=== PATIENT | female | born 1955 | race Caucasian/White ===

== ENCOUNTER 2018-04-17 08:13 | Day surgery (SDC) | payer MEDICARE, OTHER ==
--- NOTE | 2018-04-14 14:16 | Pre-Procedure Note/Attestation ---
Pre-Procedure Note/Attestation Complete Prior to Procedure Planned Procedure: left Procedure Narrative: Cataract extraction With Intraocular Lens Implant Left Eye Indications for Procedure Pre-Operative Diagnosis: Cataract Left Eye Attestation I attest that I discussed the nature of the procedure; its benefits; risks and complications; and alternatives (and the risks and benefits of such alternatives ), prior to the procedure, with the patient (or the patient's legal leasing representative). I attest that, if there was a reasonable possibility of needing a blood transfusion, the patient (or the patient's legal leasing representative) was given the [facility] standardized written summary, pursuant to the Evan Jordan Blood Safety Act ([place] Health and Safety Code # 1645, as amended). I attest that I re-evaluated the patient just prior to the surgery and that there has been no change in the patient's H&P, except as documented below: Chinedu Ibarra MD Apr 14, 2018 14:16
--- NOTE | 2018-04-14 14:21 | Opthalmology H&P ---
Ophthalmology H&P H&P Chief Complaint: decreased vision in left eye HPI Vision Affects Ability to: read, focus/use eyes together HPI Narrative Blurry Vision Exam Visual Acuity: OD 20/60 OS 20/60 Tension: OD 19 OS 18 Eye Exam: normal OU: external exam, palpebral fissure-width, marginal reflex distance, levator function, corneas, anterior chambers, fundus exam; findings: lens - Cortical Cataract OS Assessment/Plan Treatment Plan: cataract extraction w/ lens implant Goals of Treatment: improvement of vision, enhance quality of life Attestation Attestation The risks and benefits of the surgery as well as alternative procedures were explained to the patient in detail. Chinedu Ibarra MD Apr 14, 2018 14:21
[2018-04-17] VITALS (11 sets, daily range): BP systolic 81–137; BP diastolic 46–85
[~2018-04-17] VITALS: Ht 167.6 cm; Wt 117.9 kg
[~2018-04-17 08:13] MED LIST: Akten 3.5% 1ml Btl LEFT EYE ONE; Dexamethasone 4mg/ml vial ONE; Maxitrol Opth Oint 3.5gm ONE; Pilocarpine 1% Opth 15ml Soln ONE; Pred Forte 1% Opth Susp 1ml ONE; Proparacaine 0.5% Opth Soln 15ml LEFT EYE ONE; Tetracaine 0.5% Opth 4ml Soln LEFT EYE ONE
[2018-04-17] MEDS: Diclofenac Sod 0.1% Op Soln LEFT EYE SCH ×3 (12:25→12:42)
[2018-04-17] MEDS: Tropicamide 1% Opth 15ml Soln LEFT EYE SCH ×3 (12:25→12:42)
[2018-04-17] MEDS: Phenylephrine 10% Opth Soln 5ml LEFT EYE SCH ×3 (12:26→12:42)
[2018-04-17] MEDS: Tobramycin Op Soln 0.3% 5ml LEFT EYE SCH ×3 (12:26→12:42)
[2018-04-17] MEDS: Cyclopentolate 1% Opth Sol 2ml LEFT EYE SCH ×3 (12:26→12:42)
[2018-04-17] MEDS ORDERED: EPINEPHrine 1mg/1ml Amp ONE (12:53)
[2018-04-17] MEDS ORDERED: BSS 15ml BTL ONE (12:54)
[2018-04-17] MEDS ORDERED: Povidone-Iodine 5% opth solution ONE (12:54)
[2018-04-17] MEDS ORDERED: Sodium Hyaluronate 14 mg/ml 0.85ml ONE (12:54)
[2018-04-17] MEDS ORDERED: BSS 500ml btl ONE (12:54)
[2018-04-17] MEDS ORDERED: Sterile Water Irrig 1000ml IRRIG ONE (13:00)
[2018-04-17] MEDS ORDERED: NS Irrig 1000ml ONE (13:00)
[2018-04-17] MEDS ORDERED: LR 1000ml ONE (13:00)
[2018-04-17] MEDS ORDERED: fentaNYL 100 mcg/2 mL IV ONE (13:08)
[2018-04-17] MEDS ORDERED: Midazolam 2mg/2ml Inj ONE ×2 (13:08→13:22)
[2018-04-17] MEDS ORDERED: CYMBALTA60 MG ORAL (13:11)
[2018-04-17] MEDS ORDERED: HYDROXYZINE HCL50 M1 PO (13:11)
[2018-04-17] MEDS ORDERED: GLIPIZIDE10 MG PO (13:11)
[2018-04-17] MEDS ORDERED: PRAZOSIN HCL2 MG PO (13:11)
[2018-04-17] MEDS ORDERED: ATORVASTATIN CA40 MG ORAL (13:11)
[2018-04-17] MEDS ORDERED: JANUVIA25 MG ORAL (13:11)
[2018-04-17] MEDS ORDERED: IBUPROFEN600 MG ORAL (13:11)
[2018-04-17] MEDS ORDERED: TRAZODONE HCL50 MG ORAL (13:11)
--- NOTE | 2018-04-17 13:55 | Anethesia Preoperative Eval ---
Anesthesia Pre-op PMH/ROS General Date of Evaluation: Apr 17, 2018 Time of Evaluation: 13:00 Anesthesiologist: velia ASA Score: ASA 3 Mallampati Score Class I : Soft palate, uvula, fauces, pillars visible Class II: Soft palate, uvula, fauces visible Class III: Soft palate, base of uvula visible Class IV: Only hard plate visible Mallampati Classification: Class III Surgeon: radha Diagnosis: cataract Anesthesia History: none Family History: no anesthesia problems Allergies: Coded Allergies: PENICILLINS (Verified Allergy, Severe, 04/17/18) TROUBLE BREATHING, THROAT CLOSES WATERMELON (Verified Allergy, Severe, 04/17/18) THROAT CLOSES Medications: see eMAR Patient NPO?: Yes NPO Date: Apr 17, 2018 NPO Time: 00:01 Past Medical History Cardiovascular: Reports: HTN, CAD Pulmonary: Denies: asthma, COPD, BRETT, other Gastrointestinal/Genitourinary: Reports: GERD; Denies: CRI, ESRD, other Neurologic/Psychiatric: Reports: depression/anxiety; Denies: dementia, CVA, TIA, other Endocrine: Reports: DM; Denies: hypothyroidism, steroids, other HEENT: Reports: cataract (L) Hematology/Immune: Denies: anemia, DVT, bleeding disorder, other Musculoskeletal/Integumentary: Denies: OA, RA, DJD, DDD, edema, other Other: obesity Anesthesia Pre-op Phys. Exam Physician Exam Last Vital Signs Date Time Temp Pulse Resp B/P (MAP) Pulse Ox O2 Delivery O2 Flow Rate FiO2 04/17/18 12:45 Room Air 04/17/18 12:30 98.4 77 18 113/69 98 Constitutional: NAD Neurologic: CN 2-12 intact Cardiovascular: RRR Respiratory: CTA Gastrointestinal: S/NT/ND Airway Exam Mallampati Classification 3 Mallampati Score: Class III MO: limited Neck: thick TMD: 1fb ROM: limited Dentures: no upper, no lower Anesthesia Pre-op A/P Studies Pre-op Studies: EKG - sr Risk Assessment & Plan Plan: mac Pre-Antibiotics Drug: none Geri Ayala CRNA Apr 17, 2018 13:55
--- NOTE | 2018-04-17 13:56 | Immediate Post-Op Evaluation ---
Immediate Post-Op Evalulation Immediate Post-Op Evalulation Procedure: left eye cataract extraction IOL Date of Evaluation: Apr 17, 2018 Time of Evaluation: 13:55 IV Fluids: 600 Blood Pressure Systolic: 134 Blood Pressure Diastolic: 81 Pulse Rate: 77 Respiratory Rate: 14 O2 Sat by Pulse Oximetry: 95 Temperature (Fahrenheit): 97.5 Pain Score (1-10): 0 Nausea: No Vomiting: No Complications none Patient Status: awake, reacts, patent Hydration Status: adequate Drug: none Geri Ayala CRNA Apr 17, 2018 13:56
--- NOTE | 2018-04-17 14:23 | 48 Hour Post Anesthesia Eval ---
Post Anesthesia Evaluation Procedure: left eye cataract extraction IOL Date of Evaluation: Apr 17, 2018 Time of Evaluation: 14:23 Blood Pressure Systolic: 133 0: 79 Pulse Rate: 71 Respiratory Rate: 14 O2 Sat by Pulse Oximetry: 98 Airway: patent Nausea: No Vomiting: No Hydration Status: adequate Cardiopulmonary Status: stable Mental Status/LOC: patient returned to baseline Post-Anesthesia Complications: none Follow-up care needed: N/A eGri Ayala CRNA Apr 17, 2018 14:23
--- NOTE | 2018-04-19 10:45 | Brief Operative Note ---
Immediate Post Operative Note Operative Note Chief Complaint: blurry vision Pre-op Diagnosis: Cortical Cataract Left Eye Procedure: phaco with IOL Post-op Diagnosis: Pseudophakia Post-op Diagnosis: same as pre-op Findings: consistent w/pre-op dx studies Surgeon: Stacey Anesthesiologist: Lucy Anesthesia: MAC Specimen: none Complications: none Condition: stable Fluids: LR Estimated Blood Loss: none Drains: none Implant(s) used?: Yes Chinedu Ibarra MD Apr 19, 2018 10:45
--- NOTE | 2018-04-19 10:46 | Operative Note - PDOC ---
Operative Note Operative Note Date of Operation/Procedure: Apr 17, 2018 Chief Complaint: blurry vision Pre-op Diagnosis: Cortical Cataract Left Eye Procedure: phaco with IOL Post-op Diagnosis: Pseudophakia Post-op Diagnosis: same as pre-op Operative Findings: consistent w/pre-op dx studies Surgeon: Stacey Anesthesiologist: Lucy Anesthesia: MAC Specimen: none Complications: none Condition: stable Fluids: LR Estimated Blood Loss: none Drains: none Implant(s) used?: Yes Indications for Procedure cataract Description of Procedure This patient has been complaining visually significant cataract in the affected eye with the best corrected visual acuity under moderate glare conditions worse. The patient complains of difficulties with glare in performing activities of daily living and wants to manage personal affairs with comfort and accuracy and see well enough to move with safety at home and outdoors. The risks, benefits and alternatives of the procedure were discussed with the patient in the office prior to scheduling surgery. All questions from the patient were answered after the surgical procedure was explained in detail. The risks of the procedure as explained to the patient include, but are not limited to, pain, infection, bleeding, loss of vision, retinal detachment, need for further surgery, loss of lens nucleus, double vision, etc. Alternative procedures were discussed which include, to do nothing or seek a second opinion. Informed consent for this procedure was obtained from the patient. The patient was referred to a primary care physician for a cardiopulmonary clearance prior to surgery, after proper evaluation was done patient was properly scheduled for outpatient surgery. The patient was brought to the operating room where the anesthesiologist established I.V. lines and cardiac monitoring leads. Mild intravenous sedation was administered. The patient was then prepared with a 5% solution of povidone -iodine to the conjunctival fornix and lashes, and a 5% solution of povidone- iodine to the lids and periorbital skin. The patient was then draped in the usual sterile fashion. A lid speculum was then placed in the operative eye. A keratome blade was then used to create a biplanar incision into the anterior chamber. Viscoelastics was then instilled into the anterior chamber. A capsulorrhexis was then fashioned with an utrata forceps. The lens nucleus was hydrodissected and hydrodelineated with a G 27 Cannula. Paracentesis incision was made at 3 o'clock with sharp blade. The phacoemulsification unit, after being properly adjusted and tested, was then used to emulsify the nucleus followed by aspiration and irrigation of residual cortical material. Healon was then instilled into the anterior chamber. The corneal wound was then enlarged to the size of the optic with the ernie keratome blade. The intraocular lens was then inspected for right power and size and thought to be satisfactory. Then the lens was gently placed in the capsular bag. Positioning within the capsular bag was confirmed by direct visualization. Optic centration was accomplished with a Sinskey hook. Viscoelastics was removed from the anterior chamber using the irrigation and aspiration unit. The corneal wound was then tested for leaks and none were found. The lid speculum were then removed. Sponge and needle counts were correct. An eye patch and shield were placed over the operative eye. The patient was taken to the recovery room in stable condition. There were no complications. The patient tolerated the procedure well. The patient was then transferred to the ambulatory surgery unit in stable and satisfactory condition , was given detailed written instructions and asked to follow up in the office the next day. Chinedu Ibarra MD Apr 19, 2018 10:46
== END 2018-04-17 15:00 | disposition home or self-care (01) ==
LOC: SUR 08:13
DX: H25.012 Cortical age-related cataract, left eye (principal); I10 Essential (primary) hypertension; E11.9 Type 2 diabetes mellitus without complications; I48.0 Paroxysmal atrial fibrillation; I25.10 Atherosclerotic heart disease of native coronary artery without angina pectoris; F32.9 Major depressive disorder, single episode, unspecified; R91.1 Solitary pulmonary nodule; K21.9 Gastro-esophageal reflux disease without esophagitis; G47.33 Obstructive sleep apnea (adult) (pediatric); Z72.0 Tobacco use; F41.9 Anxiety disorder, unspecified; J44.9 Chronic obstructive pulmonary disease, unspecified; E66.9 Obesity, unspecified; Z88.0 Allergy status to penicillin; Z91.018 Allergy to other foods; Z90.710 Acquired absence of both cervix and uterus; Z90.722 Acquired absence of ovaries, bilateral; Z90.79 Acquired absence of other genital organ(s)
CPT/HCPCS: 66984; 82962; J0171; J1100; J2250; J3010; J3370; V2632; 94003; 94150

== ENCOUNTER 2018-05-15 05:43 | Day surgery (SDC) | payer MEDICARE, OTHER ==
--- NOTE | 2018-05-11 16:28 | Opthalmology H&P ---
Ophthalmology H&P H&P Chief Complaint: decreased vision in right eye HPI Vision Affects Ability to: read, manage personal affairs HPI Narrative Blurry Vision Exam Visual Acuity: OD 20/50 OS 20/40 Tension: OD 12 OS 12 Eye Exam: normal OU: external exam, palpebral fissure-width, marginal reflex distance, levator function, corneas, anterior chambers, lens - Nuclear Sclerotic Cataract Right Eye, fundus exam; findings: lens - Nuclear Sclerotic Cataract Right Eye Assessment/Plan Treatment Plan: cataract extraction w/ lens implant Goals of Treatment: improvement of vision, enhance quality of life Attestation Attestation The risks and benefits of the surgery as well as alternative procedures were explained to the patient in detail. Chinedu Ibarra MD May 11, 2018 16:28
--- NOTE | 2018-05-11 16:34 | Pre-Procedure Note/Attestation ---
Pre-Procedure Note/Attestation Complete Prior to Procedure Planned Procedure: right Procedure Narrative: Cataract Extraction With Intraocular Lens Implant Indications for Procedure Pre-Operative Diagnosis: Cataract Right Eye Attestation I attest that I discussed the nature of the procedure; its benefits; risks and complications; and alternatives (and the risks and benefits of such alternatives ), prior to the procedure, with the patient (or the patient's legal service center representative). I attest that, if there was a reasonable possibility of needing a blood transfusion, the patient (or the patient's legal service center representative) was given the [facility] standardized written summary, pursuant to the Evan Jordan Blood Safety Act ([place] Health and Safety Code # 1645, as amended). I attest that I re-evaluated the patient just prior to the surgery and that there has been no change in the patient's H&P, except as documented below: Chinedu Ibarra MD May 11, 2018 16:34
[2018-05-12 08:33] LABS: BASOPHILS % (AUTO) 0.9 % (0.0-2.0); EOSINOPHILS % (AUTO) 1.2 % (0.0-3.0); HEMATOCRIT 36.6 % (37.0-47.0); HEMOGLOBIN 11.4 G/DL (12.0-16.0); LYMPHOCYTES % (AUTO) 27.1 % (20.0-45.0); MEAN CORPUSCULAR VOLUME 86 FL (80-99); MONOCYTES % (AUTO) 5.8 % (1.0-10.0); PLATELET COUNT 258 K/UL (150-450); RED BLOOD COUNT 4.23 M/UL (4.20-5.40); RED CELL DISTRIBUTION WIDTH 16.3 % (11.6-14.8); WHITE BLOOD COUNT 8.6 K/UL (4.8-10.8)
[2018-05-12 08:43] LABS: ALANINE AMINOTRANSFERASE 23 U/L (12-78); ALBUMIN 3.3 G/DL (3.4-5.0); ALBUMIN/GLOBULIN RATIO 0.8 (1.0-2.7); ALKALINE PHOSPHATASE 99 U/L (46-116); ANION GAP 6 mmol/L (5-15); ASPARTATE AMINO TRANSFERASE 19 U/L (15-37); BILIRUBIN,TOTAL 0.3 MG/DL (0.2-1.0); BLOOD UREA NITROGEN 11 mg/dL (7-18); CALCIUM 8.8 MG/DL (8.5-10.1); CARBON DIOXIDE 32 MMOL/L (21-32); CHLORIDE 104 MMOL/L (98-107); POTASSIUM 4.1 MMOL/L (3.5-5.1); SODIUM 142 MMOL/L (136-145)
[2018-05-12 08:45] LABS: INR 0.9 (0.9-1.1)
[2018-05-15] VITALS (7 sets, daily range): BP systolic 121–164; BP diastolic 71–88
[~2018-05-15] VITALS: Ht 167.6 cm; Wt 121.6 kg
[~2018-05-15 05:43] MED LIST changes: +ATORVASTATIN CA40 MG ORAL; -Akten 3.5% 1ml Btl LEFT EYE ONE; +CYMBALTA60 MG ORAL; -Dexamethasone 4mg/ml vial ONE; +GLIPIZIDE10 MG PO; +HYDROXYZINE HCL50 M1 PO; +IBUPROFEN600 MG ORAL; +JANUVIA25 MG ORAL; -Maxitrol Opth Oint 3.5gm ONE; +PRAZOSIN HCL2 MG PO; -Pilocarpine 1% Opth 15ml Soln ONE; -Pred Forte 1% Opth Susp 1ml ONE; -Proparacaine 0.5% Opth Soln 15ml LEFT EYE ONE; +TRAZODONE HCL50 MG ORAL; -Tetracaine 0.5% Opth 4ml Soln LEFT EYE ONE
[2018-05-15] MEDS: Cyclopentolate 1% Opth Sol 2ml RIGHT EYE SCH ×3 (06:46→07:20)
[2018-05-15] MEDS: Phenylephrine 10% Opth Soln 5ml RIGHT EYE SCH ×3 (06:47→07:21)
[2018-05-15] MEDS: Tobramycin Op Soln 0.3% 5ml RIGHT EYE SCH ×3 (06:47→07:21)
[2018-05-15] MEDS: Diclofenac Sod 0.1% Op Soln RIGHT EYE SCH ×3 (06:47→07:21)
[2018-05-15] MEDS: Tropicamide 1% Opth 15ml Soln RIGHT EYE SCH ×3 (06:47→07:21)
[2018-05-15] MEDS ORDERED: Proparacaine 0.5% Opth Soln 15ml RIGHT EYE ONE (07:00)
[2018-05-15] MEDS ORDERED: Tetracaine 0.5% Opth 4ml Soln RIGHT EYE ONE (07:00)
[2018-05-15] MEDS ORDERED: Akten 3.5% 1ml Btl RIGHT EYE ONE (07:00)
[2018-05-15] MEDS ORDERED: LR 1000ml 1,000 ML IVLG SCH (07:27)
--- NOTE | 2018-05-15 07:27 | Anethesia Preoperative Eval ---
Anesthesia Pre-op PMH/ROS General Date of Evaluation: May 15, 2018 Anesthesiologist: Chan ASA Score: ASA 3 Mallampati Score Class I : Soft palate, uvula, fauces, pillars visible Class II: Soft palate, uvula, fauces visible Class III: Soft palate, base of uvula visible Class IV: Only hard plate visible Mallampati Classification: Class III Surgeon: Stacey Diagnosis: Right cataract Surgical Procedure: Right cataract extraction with IOL Anesthesia History: none Family History: no anesthesia problems Allergies: Coded Allergies: PENICILLINS (Verified Allergy, Severe, 04/17/18) TROUBLE BREATHING, THROAT CLOSES WATERMELON (Verified Allergy, Severe, 04/17/18) THROAT CLOSES Medications: see eMAR Patient NPO?: Yes NPO Date: May 14, 2018 NPO Time: 22:00 Past Medical History Cardiovascular: Denies: HTN, CAD, MA, valve dz, arrhythmia, other Pulmonary: Reports: COPD; Denies: asthma, BRETT, other Gastrointestinal/Genitourinary: Denies: GERD, CRI, ESRD, other Neurologic/Psychiatric: Reports: depression/anxiety, other - vertigo; Denies: dementia, CVA, TIA Endocrine: Reports: DM; Denies: hypothyroidism, steroids, other HEENT: Reports: cataract (R); Denies: cataract (L), glaucoma, HUSLIA (L), HUSLIA (R), other Hematology/Immune: Denies: anemia, DVT, bleeding disorder, other Musculoskeletal/Integumentary: Reports: OA, DJD; Denies: RA, DDD, edema, other Other: obesity - morbid PSxH Narrative: Left cataract, SERGEY, right hand, bilateral knee arthroscopy, lumbar decompression and fusion Anesthesia Pre-op Phys. Exam Physician Exam Last Vital Signs Date Time Temp Pulse Resp B/P (MAP) Pulse Ox O2 Delivery O2 Flow Rate FiO2 05/15/18 06:58 97.7 79 20 121/71 96 Room Air Constitutional: NAD Cardiovascular: RRR Respiratory: CTA Airway Exam Mallampati Score: Class III MO: limited ROM: limited Anesthesia Pre-op A/P Labs see chart Studies Pre-op Studies: EKG - sr Risk Assessment & Plan Assessment: ASA III Plan: MAC Status Change Before Surgery: No Pre-Antibiotics Drug: N/A Kathi Polanco MD May 15, 2018 07:27
[2018-05-15] MEDS ORDERED: DiphenhydrAMINE 50mg/ml Inj IVP PRN (07:30)
[2018-05-15] MEDS ORDERED: EPINEPHrine 1mg/1ml Amp ONE (07:35)
[2018-05-15] MEDS ORDERED: BSS 15ml BTL ONE (07:35)
[2018-05-15] MEDS ORDERED: BSS 500ml btl ONE (07:35)
[2018-05-15] MEDS ORDERED: Povidone-Iodine 5% opth solution ONE (07:35)
[2018-05-15] MEDS ORDERED: Sodium Hyaluronate 14 mg/ml 0.85ml ONE (07:35)
[2018-05-15] MEDS ORDERED: Lidocaine 1% MPF 10mg/ml 5ml ONE (08:11)
[2018-05-15] MEDS ORDERED: fentaNYL 100 mcg/2 mL IV ONE (08:11)
[2018-05-15] MEDS ORDERED: Midazolam 2mg/2ml Inj ONE ×2 (08:11→08:47)
[2018-05-15] MEDS ORDERED: acetaZOLAMIDE 500mg Inj ONE (09:11)
--- NOTE | 2018-05-15 09:14 | Immediate Post-Op Evaluation ---
Immediate Post-Op Evalulation Immediate Post-Op Evalulation Procedure: Right cataract extraction with IOL Date of Evaluation: May 15, 2018 Time of Evaluation: 09:16 IV Fluids: 500 Blood Products: 0 Estimated Blood Loss: 0 Urinary Output: 0 Blood Pressure Systolic: 164 Blood Pressure Diastolic: 87 Pulse Rate: 94 Respiratory Rate: 17 O2 Sat by Pulse Oximetry: 96 Temperature (Fahrenheit): 98.6 Pain Score (1-10): 0 Nausea: No Vomiting: No Complications 0 Patient Status: awake, reacts, patent, none Hydration Status: adequate Drug: N/A Kathi Polanco MD May 15, 2018 09:14
--- NOTE | 2018-05-15 09:14 | 48 Hour Post Anesthesia Eval ---
Post Anesthesia Evaluation Procedure: Right cataract extraction with IOL Date of Evaluation: May 15, 2018 Airway: patent Nausea: No Vomiting: No Pain Intensity: 0 Hydration Status: adequate Cardiopulmonary Status: at baseline Mental Status/LOC: patient returned to baseline Post-Anesthesia Complications: 0 Follow-up care needed: ready to discharge Kathi Polanco MD May 15, 2018 09:14
--- NOTE | 2018-05-16 13:01 | Brief Operative Note ---
Immediate Post Operative Note Operative Note Chief Complaint: blurry vision Pre-op Diagnosis: Nuclear Sclerotic Cataract Right Eye Procedure: phaco with IOL Post-op Diagnosis: Pseudophakia Post-op Diagnosis: same as pre-op Findings: consistent w/pre-op dx studies Surgeon: Stacey Anesthesiologist: José Luis Anesthesia: MAC Specimen: none Complications: none Condition: stable Fluids: LR Estimated Blood Loss: none Drains: none Implant(s) used?: Yes Chinedu Ibarra MD May 16, 2018 13:01
--- NOTE | 2018-05-16 13:02 | Operative Note - PDOC ---
Operative Note Operative Note Date of Operation/Procedure: May 15, 2018 Chief Complaint: blurry vision Pre-op Diagnosis: Nuclear Sclerotic Cataract Right Eye Procedure: phaco with IOL Post-op Diagnosis: Pseudophakia Post-op Diagnosis: same as pre-op Operative Findings: consistent w/pre-op dx studies Surgeon: Stacey Anesthesiologist: José Luis Anesthesia: MAC Specimen: none Complications: none Condition: stable Fluids: LR Estimated Blood Loss: none Drains: none Implant(s) used?: Yes Indications for Procedure cataract Description of Procedure This patient has been complaining visually significant cataract in the affected eye with the best corrected visual acuity under moderate glare conditions worse. The patient complains of difficulties with glare in performing activities of daily living and wants to manage personal affairs with comfort and accuracy and see well enough to move with safety at home and outdoors. The risks, benefits and alternatives of the procedure were discussed with the patient in the office prior to scheduling surgery. All questions from the patient were answered after the surgical procedure was explained in detail. The risks of the procedure as explained to the patient include, but are not limited to, pain, infection, bleeding, loss of vision, retinal detachment, need for further surgery, loss of lens nucleus, double vision, etc. Alternative procedures were discussed which include, to do nothing or seek a second opinion. Informed consent for this procedure was obtained from the patient. The patient was referred to a primary care physician for a cardiopulmonary clearance prior to surgery, after proper evaluation was done patient was properly scheduled for outpatient surgery. The patient was brought to the operating room where the anesthesiologist established I.V. lines and cardiac monitoring leads. Mild intravenous sedation was administered. The patient was then prepared with a 5% solution of povidone -iodine to the conjunctival fornix and lashes, and a 5% solution of povidone- iodine to the lids and periorbital skin. The patient was then draped in the usual sterile fashion. A lid speculum was then placed in the operative eye. A keratome blade was then used to create a biplanar incision into the anterior chamber. Viscoelastics was then instilled into the anterior chamber. A capsulorrhexis was then fashioned with an utrata forceps A G 27 cannula was used to hydrodissect and hydro delineate the lens nucleus. Paracentesis incision was made at 3 o'clock with sharp blade. The phacoemulsification unit, after being properly adjusted and tested, was then used to emulsify the nucleus. Residual cortical material was aspirated with the irrigation and aspiration unit. Healon was then instilled into the anterior chamber. The corneal wound was then enlarged to the size of the optic with the ernie keratome blade. The intraocular lens was then inspected for right power and size and thought to be satisfactory. Then the lens was gently placed in the capsular bag. Positioning within the capsular bag was confirmed by direct visualization. Optic centration was accomplished with a Sinskey hook. Viscoelastics was removed from the anterior chamber using the irrigation and aspiration unit. The corneal wound was then tested for leaks and none were found. The lid speculum were then removed. Sponge and needle counts were correct. An eye patch and shield were placed over the operative eye. The patient was taken to the recovery room in stable condition. There were no complications. The patient tolerated the procedure well. The patient was then transferred to the ambulatory surgery unit in stable and satisfactory condition , was given detailed written instructions and asked to follow up in the office the next day. Chinedu Ibarra MD May 16, 2018 13:02
--- NOTE | 2018-05-16 13:51 | Pre-op HX & Phy Repo 2 SIG ---
DATE OF ADMISSION: 05/15/2018 PRESURGICAL INTERNAL MEDICINE HISTORY AND PHYSICAL REASON FOR EVALUATION: I was asked by Dr. Chinedu Ibarra to see this 63-year-old female, who is going for elective surgery on the right eye. The patient has a cataract, right eye. Please see Ophthalmology History and Physical by Dr. Chinedu Ibarra. The patient is a 63-year-old female who was evaluated. Chart was reviewed. PAST MEDICAL HISTORY AND REVIEW OF SYSTEMS: Remarkable for history of COPD and type 2 diabetes. Denies history of heart attack or stroke. No history of GI bleeding or heartburn. The patient has a history of obesity. No history of anemia. No thyroid problem. No renal failure. PAST SURGICAL HISTORY: surgery, hysterectomy, left eye cataract, and also lumbar spine surgery. FAMILY HISTORY: Not known. ALLERGIES: To watermelon and penicillin. MEDICATIONS: Include glipizide, trazodone, Januvia, and Motrin. SOCIAL HISTORY: The patient is smoking for about 45 years, presently smokes about three cigarettes a day. Denies alcohol or street drug use. PHYSICAL EXAMINATION: GENERAL: Alert, obese female, in her 60s. The patient is overweight and BMI is 43.3 kg/m2. VITAL SIGNS: Blood pressure 121/71, temperature of 97.7, pulse 75, respirations 20, O2 saturation 97%. SKIN: Dry and warm. No rashes. LYMPH NODES: Not enlarged. HEENT: Head, normocephalic and atraumatic. Ears, clear. Eyes, full description per Dr. Chinedu Ibarra. Mouth, absent of front upper teeth dentures. Mucous moist. Tongue midline.. NECK: Supple. No jugular venous distention. Carotids artery +2. Trachea midline. CHEST: Mild kyphosis. LUNGS: Clear. No rhonchi or wheezing. No rales. HEART: Regular without ectopy. No murmur. ABDOMEN: Soft, obese. No palpable mass. No rebound. EXTREMITIES: Degenerative joint disease, knee. No edema. No varicose vein or calf tenderness. GENITOURINARY TRACT: No dysuria. No CVA tenderness. NERVOUS SYSTEM: No tremor. No nystagmus. LABORATORY AND DIAGNOSTIC DATA: Electrocardiogram, sinus rate , left axis deviation, anterior fascicular block. The patient did not eat or drink from 8 p.m. yesterday. Lab work is pending. IMPRESSION: 1. Cataract, right eye. 2. Type 2 diabetes mellitus. 3. COPD. 4. Morbid obesity. 5. Degenerative joint disease. PLAN: Cataract extraction, right eye with intraocular lens implant per Dr. Chinedu Ibarra. CONCLUSION: The patient is a 63-year-old female, who had multiple medical problems include type 2 diabetes, controlled; obesity with BMI of 43; COPD; and degenerative joint disease. Electrocardiogram showed right bundle-branch block and right axis deviation. The patient did not eat or drink from 8 p.m. yesterday. The patient's condition is optimized for surgery. Nazia Alonzo M.D. DR: BRANDI JOB#: [id number] CC:
== END 2018-05-15 10:10 | disposition home or self-care (01) ==
LOC: SUR 05:43
DX: H25.11 Age-related nuclear cataract, right eye (principal); E11.9 Type 2 diabetes mellitus without complications; J44.9 Chronic obstructive pulmonary disease, unspecified; Z68.41 Body mass index [BMI] 40.0-44.9, adult; Z88.0 Allergy status to penicillin; M19.90 Unspecified osteoarthritis, unspecified site; E66.01 Morbid (severe) obesity due to excess calories; I44.4 Left anterior fascicular block; Z91.018 Allergy to other foods; F17.210 Nicotine dependence, cigarettes, uncomplicated; Z90.710 Acquired absence of both cervix and uterus; F32.9 Major depressive disorder, single episode, unspecified; F41.9 Anxiety disorder, unspecified; Z98.1 Arthrodesis status
CPT/HCPCS: 36415; 66984; 80053; 82962; 85025; 85610; 85730; J0171; J1120; J2250; J3010; J3370; V2632; 94003; 94150